=== PATIENT | female | born 1945 | race Caucasian/White ===

== ENCOUNTER 2019-04-08 08:37 | Outpatient (CLI) | payer OTHER ==
[~2019-04-08 08:37] MED LIST: MACROBID 100 M100 MG PO; ULTRACET PO
== END 2019-04-08 08:40 | disposition home or self-care (01) ==
LOC: RAD 08:37
DX: M25.571 Pain in right ankle and joints of right foot (principal); M25.572 Pain in left ankle and joints of left foot

== ENCOUNTER 2019-04-15 07:21 | Outpatient (CLI) | payer OTHER | END 2019-04-15 07:25 | disposition home or self-care (01) | LOC: RAD 07:21 | DX: M25.572 Pain in left ankle and joints of left foot (principal); M25.571 Pain in right ankle and joints of right foot ==

== ENCOUNTER 2019-04-21 07:21 | Outpatient (CLI) | payer OTHER | END 2019-04-21 07:23 | disposition home or self-care (01) | LOC: RAD 07:21 | DX: M25.572 Pain in left ankle and joints of left foot (principal); M25.571 Pain in right ankle and joints of right foot ==

== ENCOUNTER 2019-04-28 07:22 | Outpatient (CLI) | payer OTHER | END 2019-04-28 07:25 | disposition home or self-care (01) | LOC: RAD 07:22 | DX: M25.571 Pain in right ankle and joints of right foot (principal); M25.572 Pain in left ankle and joints of left foot ==

== ENCOUNTER 2019-05-14 06:56 | Outpatient (CLI) | payer OTHER | END 2019-05-14 08:00 | disposition home or self-care (01) | LOC: LAB 06:56 | DX: E21.2 Other hyperparathyroidism (principal); E55.9 Vitamin D deficiency, unspecified; M85.88 Other specified disorders of bone density and structure, other site; E88.89 Other specified metabolic disorders; M81.8 Other osteoporosis without current pathological fracture; E56.1 Deficiency of vitamin K; B17.8 Other specified acute viral hepatitis ==

== ENCOUNTER 2019-05-17 10:39 | Outpatient (CLI) | payer OTHER | END 2019-05-17 11:00 | disposition home or self-care (01) | LOC: NUCLEAR 10:39 | DX: M81.0 Age-related osteoporosis without current pathological fracture (principal) ==

== ENCOUNTER 2019-05-27 07:27 | Outpatient (CLI) | payer OTHER | END 2019-05-27 07:30 | disposition home or self-care (01) | LOC: RAD 07:27 | DX: M25.571 Pain in right ankle and joints of right foot (principal); M25.572 Pain in left ankle and joints of left foot ==

== ENCOUNTER 2019-08-19 07:39 | Outpatient (CLI) | payer OTHER | END 2019-08-19 07:45 | disposition home or self-care (01) | LOC: RAD 07:39 | DX: M25.571 Pain in right ankle and joints of right foot (principal); M25.572 Pain in left ankle and joints of left foot; S82.61XD Displaced fracture of lateral malleolus of right fibula, subsequent encounter for closed fracture with routine healing; S82.62XD Displaced fracture of lateral malleolus of left fibula, subsequent encounter for closed fracture with routine healing ==

== ENCOUNTER 2023-06-22 15:02 | Emergency (ER) | payer OTHER ==
[~2023-06-22] VITALS: Ht 152.4 cm; Wt 45.4 kg
[2023-06-22] MEDS ORDERED: ATENOLOL25 MG (15:19)
[2023-06-22] MEDS ORDERED: ZESTRIL5 MG (15:19)
== END 2023-06-22 18:54 | disposition home or self-care (01) ==
LOC: ER 15:02
DX: M79.672 Pain in left foot (principal)
CPT/HCPCS: 73600; 73620; 96372; 99284; J1885